=== PATIENT | male | born 1970 | race Caucasian/White ===

== ENCOUNTER 2017-02-27 15:31 | Emergency (ER) | payer BC ==
[~2017-02-27] VITALS: Ht 160 cm; Wt 76.4 kg
[~2017-02-27 15:31] MED LIST: CLINDAMYCIN HC300 MG PO; DESYREL100 MG PO; LORTAB 5-325 M1 EACH PO; NOHOMEMEDS
[2017-02-27 16:23] LABS: ADD MIUA? YES; BILIRUBIN NEGATIVE; BLOOD LARGE; COLOR YELLOW ((YELLOW)); GLUCOSE (STRIP) NEGATIVE; KETONES 5; LEUKOCYTES NEGATIVE; NITRITE NEGATIVE; PROTEIN (STRIP) 30; SPECIFIC GRAVITY 1.024 (1.000-1.030); UROBILINOGEN 0.2 MG/DL (0.2-1.0)
[2017-02-27 16:25] LABS: MCH 29.8 PG (29.0-34.0); MCHC 33.3 G/DL (30.0-36.0); MCV 89.3 FL (86-99); MEAN PLAT.VOLUME 11.2 uM^3 (9.0-12.4); PLATELET COUNT 217 K/uL (156-360); RBC DIS.WIDTH-CV 12.8 % (11.8-14.6); RED BLOOD COUNT 5.04 M/uL (4.00-5.50); WHITE BLOOD COUNT 10.2 K/uL (4.1-10.2)
[2017-02-27 16:36] LABS: CHLORIDE 106 mEq/L (99-109); GLUCOSE 89 mg/dL (70-99); POTASSIUM 4.6 mEq/L (3.7-5.4); SODIUM 141 mEq/L (136-147)
[2017-02-27 16:38] LABS: ANION GAP 9 MEQ/L (2-14)
[2017-02-27 16:40] LABS: GFR ESTIMATE (CALCULATED) > 59 mL/min/
[2017-02-27 16:41] LABS: UREA NITROGEN (BUN) 17 mg/dL (9-23)
[2017-02-27 16:57] LABS: BACTERIA RARE /HPF; EPITHELIAL CELLS NONE SEEN /HPF; MUCUS NONE SEEN /LPF; RED BLOOD CELLS TNTC /HPF (0-5); UCUL ADDED? NO; WHITE BLOOD CELLS 0-5 /HPF (0-5)
[2017-02-27] MEDS ORDERED: FLOMAX0.4 MG PO (19:51)
[2017-02-27] MEDS ORDERED: FLEXERIL10 MG PO (19:51)
[2017-02-27] MEDS ORDERED: MOTRIN800 MG PO (19:51)
[2017-02-27] MEDS ORDERED: PERCOCET 5/31 TABLET PO (19:55)
[2017-02-27 20:21] VITALS: BP 139/97
== END 2017-02-27 20:24 | disposition home or self-care (01) ==
LOC: EME 15:31
DX: N20.0 Calculus of kidney (principal); R31.9 Hematuria, unspecified; Z87.442 Personal history of urinary calculi; F17.200 Nicotine dependence, unspecified, uncomplicated
CPT/HCPCS: 74177; 80048; 81003; 85027; 99281; 99284; J1885; J2405; J7030